=== PATIENT | male | born 1990 | race Caucasian/White ===

== ENCOUNTER 2019-06-24 17:51 | Emergency (ER) | payer SELFPAY ==
[~2019-06-24] VITALS: Ht 175.3 cm; Wt 68.0 kg
[2019-06-24 17:55] VITALS: BP 162/88
--- NOTE | 2019-06-24 17:55 | NUR ---
ED Nurse Note: Patient brought into ED by RA Miguel Angel from the [facility] c/o overdose, patient states that he was smoking fentanyl, no suicidal ideation, no plan to hurt others as well, patient was given 2 sprays of nitro prior to arrival. patient is alert and oriented x4, placed patient on cardiac monitor technician, IV started on right forearm 22 gauge, will wait for further orders .
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
[2019-06-24] MEDS ORDERED: Bacitracin Oint UD TOPIC ONE (18:00)
[2019-06-24 18:57] LABS: APPEARANCE,URINE CLEAR; BILIRUBIN, URINE NEGATIVE (NEGATIVE); COLOR,URINE PALE YELLOW; GLUCOSE, URINE (UA) NEGATIVE (NEGATIVE); KETONES,URINE NEGATIVE (NEGATIVE); LEUKOCYTE ESTERASE ,URINE NEGATIVE (NEGATIVE); NITRITE,URINE NEGATIVE (NEGATIVE); PH,URINE 6.5 (4.5-8.0); PROTEIN,URINE 3+ (NEGATIVE); UROBILINOGEN,URINE NORMAL MG/DL (0.0-1.0)
[2019-06-24 18:59] LABS: HEMATOCRIT 46.6 % (42.0-52.0); HEMOGLOBIN 16.3 G/DL (14.2-18.0); LYMPHOCYTES % (AUTO) 37.3 % (20.0-45.0); MEAN CORPUSCULAR VOLUME 84 FL (80-99); MONOCYTES % (AUTO) 6.1 % (1.0-10.0); NEUTROPHILS % (AUTO) 52.5 % (45.0-75.0); PLATELET COUNT 266 K/UL (150-450); RED BLOOD COUNT 5.57 M/UL (4.70-6.10); WHITE BLOOD COUNT 6.4 K/UL (4.8-10.8)
[2019-06-24 19:03] LABS: ANION GAP 10 mmol/L (5-15); BLOOD UREA NITROGEN 17 mg/dL (7-18); CALCIUM 9.6 MG/DL (8.5-10.1); CARBON DIOXIDE 27 MMOL/L (21-32); CHLORIDE 106 MMOL/L (98-107); POTASSIUM 4.4 MMOL/L (3.5-5.1); SODIUM 143 MMOL/L (136-145)
[2019-06-24 19:08] LABS: ALANINE AMINOTRANSFERASE 49 U/L (12-78); ALBUMIN 3.8 G/DL (3.4-5.0); ALBUMIN/GLOBULIN RATIO 0.9 (1.0-2.7); ALKALINE PHOSPHATASE 127 U/L (46-116); ASPARTATE AMINO TRANSFERASE 44 U/L (15-37); BILIRUBIN,TOTAL 0.3 MG/DL (0.2-1.0); CREATINE KINASE 209 U/L (26-308)
[2019-06-24 19:13] VITALS: BP 121/77
--- NOTE | 2019-06-24 19:15 | NUR ---
HAND-OFF: Report given to Placido Foote RN.
--- NOTE | 2019-06-24 19:18 | NUR ---
ED Nurse Note: received patient from dennis donald. patient sleeping comfortably in bed with no acute distress. vitals stable; arousable to name; opens eyes spontaneously; ao4. respirations even and unlabored. iv flushed and patent. side rails raised; bed at lowest position; brakes engaged.
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
--- NOTE | 2019-06-24 19:45 | NUR ---
ED Nurse Note: patient alert awake and oriented x4. provided with nourishment; tolerated well.
[2019-06-24] MEDS ORDERED: NARCAN4 MG NS (21:07)
[2019-06-24 21:30] VITALS: BP 122/72
--- NOTE | 2019-06-24 21:31 | NUR ---
ED Nurse Note: patient asleep in bed with no acute distress. vss. respirations even and unlabored. per ermd, will continue to monitor until pt is more awake and ready for discharge.
[2019-06-25 00:33] VITALS: BP 121/73
--- NOTE | 2019-06-25 00:34 | NUR ---
ED Nurse Note: patient remains asleep in bed with no acute distress. vitals stable. respirations even and unlabored. will continue to monitor
[2019-06-25 02:00] VITALS: BP 118/69
--- NOTE | 2019-06-25 02:00 | NUR ---
ED Nurse Note: PATIENT SLEEPING IN BED WITH NO ACUTE DISTRESS. RESPIRATIONS EVEN AND UNLABORED.
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
[2019-06-25 03:56] VITALS: BP 122/74
--- NOTE | 2019-06-25 05:00 | NUR ---
ED Nurse Note: PATIENT AWAKE ALERT AND ORIENTED X4. AMBULATED STEADY TO BATHROOM. STATES 'I'M READY TO GO HOME NOW" REFUSES TO DISCLOSE DESTINATION AFTER DISCHARGE. PROVIDED WITH NOURISHMENT. CLOTHES ARE WEATHER APPROPRIATE. CALM COOPERATIVE. ABLE TO CARE FOR SELF.
[2019-06-25 05:30] VITALS: BP 122/74
--- NOTE | 2019-06-25 05:30 | NUR ---
Homeless Discharge: Patient is being discharged from medical care. Awake, alert and oriented x3. After care instructions, including referral to community resources were given. Patient verbalized understanding of After care instructions; at this time patient does not request medications, equipment or placement. Patient signed patient consent in the medical record for patient destination upon discharge. All medical devices such as IV and ID band were removed. Patient ambulated out with all personal belongings with steady gait.
--- NOTE | 2019-06-25 13:12 | Diagnostic Imaging Report ---
Indication: Dyspnea Comparison: None A single view chest radiograph was obtained. Findings: Cardiomediastinal appearance is within normal limits for age. The lungs are clear. Pulmonary vascularity is appropriate. The diaphragmatic contour is smooth and costophrenic angles are sharp. No pleural effusions are identified. The bones are unremarkable. Impression: No acute findings
--- NOTE | 2019-06-26 07:27 | Cardiology Report ---
APPROVED REPORT EKG Measurement Heart [id number] MI 150P [id number] Ectopic atrial rhythm Nonspecific ST and T wave abnormality Abnormal ECG
== END 2019-06-25 05:30 | disposition home or self-care (01) ==
LOC: EDBD 17:51 → EMR 18:10
DX: T40.4X1A Poisoning by other synthetic narcotics, accidental (unintentional), initial encounter (principal); Z59.0 Homelessness; R41.82 Altered mental status, unspecified; Y92.9 Unspecified place or not applicable
CPT/HCPCS: 36415; 70450; 71045; 80053; 80307; 81003; 82550; 84484; 85025; 93005; 96360; 99284; G0480; J7030